=== PATIENT | male | born 1960 | race Caucasian/White ===

== ENCOUNTER 2019-04-13 14:39 | Observation (INO) | payer OTHER, SELFPAY ==
[2019-04-13] MEDS ORDERED: FENTANYL CITR 100 MCG/2 ML ONE (15:05)
[2019-04-13] MEDS ORDERED: ONDANSETRON 4 MG/2 ML VIAL ONE (15:05)
[2019-04-13 15:07] LABS: Basophils % 0.8 % (0-1.3); Hematocrit 42.6 % (39.6-49.0); Lymphocytes % 17.2 % (15.3-44.8); MPV 7.2 fL (7.6-11.3); Protime INR 0.96
[2019-04-13] MEDS ORDERED: ASPIRIN 81 MG CHEWABLE TABLET ONE (15:12)
[2019-04-13 15:28] LABS: ALT/SGPT 50 U/L (12-78); AST/SGOT 36 U/L (15-37); Albumin 3.8 g/dL (3.4-5.0); Alkaline Phosphatase 80 U/L (45-117); BUN Blood Urea Nitrogen 9 mg/dL (7-18); Bicarbonate 25 mmol/L (21-32); Bilirubin Direct 0.1 mg/dL (0-0.2); Bilirubin Total 0.4 mg/dL (0.2-1.0); Glucose Level 112 mg/dL (74-106); Magnesium 2.3 mg/dL (1.8-2.4); NT PRO-BNP 13 pg/mL (<125); Potassium 3.9 mmol/L (3.5-5.1); Protein, Total 7.2 g/dL (6.4-8.2); Sodium Level 139 mmol/L (136-145); Troponin (Emerg Dept Use Only) < 0.02 ng/mL (0.0-0.045)
--- NOTE | 2019-04-13 16:44 | ER ---
[facility] Name: Krystian Ramos Age: 58 yrs Sex: Male : 1960 Arrival Date: 04/13/2019 Time: 14:40 Bed 20 Private MD: Diagnosis: Chest pain, unspecified Presentation: 04/13 14:45 Presenting complaint: Patient states: left sided chest pain, SOB that started about an sv hour ago while ambulating in the mall shopping, CP got a little better after sitting down. c/o nausea. Transition of care: patient was not received from another setting of care. Onset of symptoms was April 13, 2019. Risk Assessment: Do you want to hurt yourself or someone else? Patient reports no desire to harm self or others. Care prior to arrival: None. 14:45 Method Of Arrival: Wheelchair sv 14:45 Acuity: DE 2 sv 15:09 Initial Sepsis Screen: Does the patient meet any 2 criteria? No. Patient's initial jl7 sepsis screen is negative. Does the patient have a suspected source of infection? No. Patient's initial sepsis screen is negative. Triage Assessment: 14:45 General: Appears in no apparent distress. uncomfortable, well groomed, well developed, sv Behavior is calm, cooperative, appropriate for age. Pain: Complains of pain in anterior aspect of left upper chest and left breast Pain currently is 5 out of 10 on a pain scale. Pain began 1 hour ago. Is continuous. Neuro: Level of Consciousness is awake, alert, obeys commands, Oriented to person, place, time, situation, Moves all extremities. Full function. Respiratory: Reports shortness of breath at rest on exertion Respiratory effort is even, unlabored, Respiratory pattern is symmetrical, tachypnea. Historical: - Allergies: 14:48 No Known Allergies; sv - Home Meds: 14:48 lisinopril 10 mg Oral tab [Active]; testosterone IM [Active]; sv - PMHx: 14:48 CVA; Hypertension; Brain aneurysm; sv - PSHx: 14:48 None; sv - Immunization history:: Adult Immunizations unknown. - Social history:: Smoking status: Patient/guardian denies using tobacco. - Ebola Screening: : No symptoms or risks identified at this time. Screenin:52 Abuse screen: Denies threats or abuse. Denies injuries from another. Nutritional ss screening: No deficits noted. Tuberculosis screening: Never had TB. Fall Risk None identified. Assessment: 15:00 General: Appears in no apparent distress. uncomfortable, Behavior is cooperative, jl7 appropriate for age, anxious. Pain: Complains of pain in mid-sternal area Pain radiates to anterior aspect of left upper chest Pain currently is 5 out of 10 on a pain scale. at worst was 10 out of 10 on a pain scale. Quality of pain is described as squeezing, Pain began 30 min ago. Neuro: Level of Consciousness is awake, alert, obeys commands, Oriented to person, place, time, situation. Cardiovascular: Reports chest pain, lightheadedness, nausea, shortness of breath, Heart tones S1 S2 present Patient's skin is warm and dry. Rhythm is regular. Respiratory: Airway is patent Respiratory effort is even, unlabored, Respiratory pattern is regular, symmetrical, Breath sounds are clear bilaterally. GI: Abdomen is round non-distended, Reports nausea, Patient currently denies diarrhea, vomiting. : No signs and/or symptoms were reported regarding the genitourinary system. EENT: No signs and/or symptoms were reported regarding the EENT system. Derm: Skin is pink, warm \T\ dry. 15:54 Reassessment: Patient appears in no apparent distress at this time. Patient and/or jl7 family updated on plan of care and expected duration. Pain level reassessed. Patient is alert, oriented x 3, equal unlabored respirations, skin warm/dry/pink. Pt reports pain rated 4/10 at this time. 17:00 Reassessment: Pt laying in bed with eyes closed, respirations even and unlabored, no jl7 signs of distress noted at this time. 18:00 Reassessment: Patient appears in no apparent distress at this time. No changes from jl7 previously documented assessment. Patient and/or family updated on plan of care and expected duration. Pain level reassessed. Patient is alert, oriented x 3, equal unlabored respirations, skin warm/dry/pink. 19:05 General: Appears in no apparent distress. uncomfortable, Behavior is calm, cooperative, rr5 appropriate for age, complaints of chest pain please see [facility] for the prn medication signed.. Pain: Complains of pain in chest Pain does not radiate. Pain currently is 6 out of 10 on a pain scale. Quality of pain is described as aching, Pain began gradually. Neuro: Level of Consciousness is awake, alert, obeys commands, Oriented to person, place, time, situation, Appropriate for age. Cardiovascular: Reports chest pain, Capillary refill < 3 seconds Patient's skin is warm and dry. Respiratory: Airway is patent Respiratory effort is even, unlabored, Respiratory pattern is regular, symmetrical. 19:05 GI: Abdomen is round non-distended. : No signs and/or symptoms were reported rr5 regarding the genitourinary system. EENT: No signs and/or symptoms were reported regarding the EENT system. Derm: Skin is intact, Skin is pink, warm \T\ dry. 20:15 Reassessment: Patient appears in no apparent distress at this time. Patient is alert, rr5 oriented x 3, equal unlabored respirations, skin warm/dry/pink. Patient states feeling better. Patient states symptoms have improved. Pain: Pain currently is 3 out of 10 on a pain scale. 20:30 Reassessment: snacks given with good appetite. rr5 21:06 Reassessment: Patient appears in no apparent distress at this time. Patient and/or rr5 family updated on plan of care and expected duration. Pain level reassessed. Patient is alert, oriented x 3, equal unlabored respirations, skin warm/dry/pink. updated for the admission as ER hold. patient agreed for the plan of care. 04/14 07:24 Reassessment: Report called to Consuelo REID. rr5 Vital Signs: 04/13 14:48 BP 157 / 97; Pulse 102; Resp 22; Pulse Ox 96% ; Weight 111.13 kg; Height 5 ft. 10 in. sv (177.80 cm); Pain 5/10; 15:18 BP 154 / 81; Pulse 96; Resp 21 S; Temp 98.9(O); Pulse Ox 97% on 2 lpm NC; jl7 15:53 BP 142 / 80; Pulse 97; Resp 16 S; Pulse Ox 100% on 2 lpm NC; Pain 4/10; jl7 17:30 BP 139 / 81; Pulse 87; Resp 16; Pulse Ox 100% on 2 lpm NC; jl7 19:05 BP 157 / 99; Pulse 85; Resp 16; Pulse Ox 96% ; jl7 19:10 BP 143 / 85; Pulse 80; Resp 17; Temp 98.7; Pulse Ox 99% on R/A; Pain 6/10; rr5 20:15 BP 151 / 90; Pulse 86; Resp 19; Pulse Ox 99% ; Pain 3/10; rr5 21:05 BP 155 / 92; Pulse 89; Resp 17; Pulse Ox 99% ; rr5 14:48 Body Mass Index 35.15 (111.13 kg, 177.80 cm) sv ED Course: 14:40 Patient arrived in ED. mr 14:45 Tima Chirinos, RN is Primary Nurse. jl7 14:46 Triage completed. sv 14:48 Arm band placed on. sv 14:52 Patient has correct armband on for positive identification. Bed in low position. Call ss light in reach. compliance monitor on. Pulse ox on. NIBP on. 14:52 Inserted saline lock: 20 gauge in right antecubital area, using aseptic technique. ss Blood collected. Patient maintains SpO2 saturation greater than 95% on room air. 14:59 [facility] Sandoval [facility]-C [facility]. snw 14:59 Cyril Byrne MD is Attending Physician. snw 15:01 EKG done, by infectious waste technician. reviewed by Cyril Byrne MD. sm3 15:23 XRAY Chest (1 view) In Process Unspecified. EDMS 16:42 Rio Stock MD is Hospitalizing Provider. snw 23:00 No provider procedures requiring assistance completed. Patient admitted, IV remains in rr5 place. intact, No redness/swelling at site. Administered Medications: 15:13 Drug: Zofran 4 mg Route: IVP; Site: left antecubital; jl7 15:52 Follow up: Response: No adverse reaction jl7 15:15 Drug: fentaNYL (PF) 25 mcg Route: IVP; Site: left antecubital; jl7 15:45 Follow up: Response: No adverse reaction; Pain is decreased jl7 15:16 Drug: Aspirin Chewable Tablet 324 mg Route: PO; jl7 15:52 Follow up: Response: No adverse reaction jl7 15:19 Not Given (Duplicate Order): Aspirin Chewable Tablet 324 mg PO once; 81 mg tablets x 4 jl7 Outcome: 16:43 Decision to Hospitalize by Provider. snw 23:00 Admitted to ER Hold. Please see [employer] for further documentation. rr5 23:00 Condition: stable 23:00 Instructed on the need for admit. rr5 04/14 07:45 Patient left the ED. Signatures: Dispatcher [employer] EDGeri Vasquez, RN RN Jessy Sandoval, SEAT JOINER CHAINSTITCH-C SEAT JOINER CHAINSTITCH-Csnw FreyMaria Del Rosario mr Angelica Kearns RN RN Erin Castrejon RN RN Tima Chirinos RN RN jl7 Alyssa Hendricks [facility] Chris Kebede RN RN rr5
--- NOTE | 2019-04-13 16:44 | EDPHYS ---
Physician Documentation [facility] Name: Krystian Ramos Age: 58 yrs Sex: Male : 1960 Arrival Date: 04/13/2019 Time: 14:40 Bed 20 Private MD: ED Physician Cyril Byrne HPI: 04/13 15:13 This 58 yrs old Male presents to ER via Wheelchair with complaints of Chest snw Pain, Shortness Of Breath. 15:13 The patient or guardian reports chest pain that is located primarily in the anterior snw chest wall, left. Onset: suddenly, and became persistent. The pain does not radiate. Associated signs and symptoms: Pertinent positives: diaphoresis, lightheadedness, nausea, shortness of breath. The chest pain is described as a pressure. Duration: The patient or guardian reports a single episode, that is still ongoing, but improving. Modifying factors: The symptoms are alleviated by nothing. the symptoms are aggravated by breathing. Severity of pain: At its worst the pain was severe in the emergency department the pain has improved. The patient has not experienced similar symptoms in the past, but family has similar symptoms, father, brother. The patient has not recently seen a physician, the patient's primary care provider is Dr. Iliana Valdez, [facility]. Historical: - Allergies: 14:48 No Known Allergies; sv - Home Meds: 14:48 lisinopril 10 mg Oral tab [Active]; testosterone IM [Active]; sv - PMHx: 14:48 CVA; Hypertension; Brain aneurysm; sv - PSHx: 14:48 None; sv - Immunization history:: Adult Immunizations unknown. - Social history:: Smoking status: Patient/guardian denies using tobacco. - Ebola Screening: : No symptoms or risks identified at this time. ROS: 15:29 Constitutional: Negative for fever, chills, and weight loss, Eyes: Negative for injury, snw pain, redness, and discharge, ENT: Negative for injury, pain, and discharge, Neck: Negative for injury, pain, and swelling. 15:29 Back: Negative for injury and pain, : Negative for injury, bleeding, discharge, and swelling, MS/Extremity: Negative for injury and deformity, Skin: Negative for injury, rash, and discoloration, Neuro: Negative for headache, weakness, numbness, tingling, and seizure. 15:29 Psych: Negative for depression, anxiety, suicide ideation, homicidal ideation, and hallucinations. 15:29 Cardiovascular: Positive for chest pain. 15:29 Respiratory: Positive for shortness of breath, at rest. 15:29 Abdomen/GI: Positive for nausea. 15:29 Neuro: Positive for dizziness. Exam: 15:29 Constitutional: This is a well developed, well nourished patient who is awake, alert, snw and in no acute distress. Head/Face: Normocephalic, atraumatic. Eyes: Pupils equal round and reactive to light, extra-ocular motions intact. Lids and lashes normal. Conjunctiva and sclera are non-icteric and not injected. Cornea within normal limits. Periorbital areas with no swelling, redness, or edema. ENT: Nares patent. No nasal discharge, no septal abnormalities noted. Tympanic membranes are normal and external auditory canals are clear. Oropharynx with no redness, swelling, or masses, exudates, or evidence of obstruction, uvula midline. Mucous membranes moist. Neck: Trachea midline, no thyromegaly or masses palpated, and no cervical lymphadenopathy. Supple, full range of motion without nuchal rigidity, or vertebral point tenderness. No Meningismus. Chest/axilla: Normal chest wall appearance and motion. Nontender with no deformity. No lesions are appreciated. Cardiovascular: Tachycardic rate and rhythm with a normal S1 and S2. No gallops, murmurs, or rubs. Normal PMI, no JVD. No pulse deficits. Respiratory: Lungs have equal breath sounds bilaterally, clear to auscultation and percussion. No rales, rhonchi or wheezes noted. No increased work of breathing, no retractions or nasal flaring. Abdomen/GI: Soft, non-tender, with normal bowel sounds. No distension or tympany. No guarding or rebound. No evidence of tenderness throughout. Back: No spinal tenderness. No costovertebral tenderness. Full range of motion. Skin: Warm, dry with normal turgor. Normal color with no rashes, no lesions, and no evidence of cellulitis. MS/ Extremity: Pulses equal, no cyanosis. Neurovascular intact. Full, normal range of motion. Neuro: Awake and alert, GCS 15, oriented to person, place, time, and situation. Cranial nerves II-XII grossly intact. Motor strength 5/5 in all extremities. Sensory grossly intact. Cerebellar exam normal. Normal gait. Psych: Awake, alert, with orientation to person, place and time. Behavior, mood, and affect are within normal limits. Vital Signs: 14:48 BP 157 / 97; Pulse 102; Resp 22; Pulse Ox 96% ; Weight 111.13 kg; Height 5 ft. 10 in. sv (177.80 cm); Pain 5/10; 15:18 BP 154 / 81; Pulse 96; Resp 21 S; Temp 98.9(O); Pulse Ox 97% on 2 lpm NC; jl7 15:53 BP 142 / 80; Pulse 97; Resp 16 S; Pulse Ox 100% on 2 lpm NC; Pain 4/10; jl7 17:30 BP 139 / 81; Pulse 87; Resp 16; Pulse Ox 100% on 2 lpm NC; jl7 19:05 BP 157 / 99; Pulse 85; Resp 16; Pulse Ox 96% ; jl7 19:10 BP 143 / 85; Pulse 80; Resp 17; Temp 98.7; Pulse Ox 99% on R/A; Pain 6/10; rr5 20:15 BP 151 / 90; Pulse 86; Resp 19; Pulse Ox 99% ; Pain 3/10; rr5 21:05 BP 155 / 92; Pulse 89; Resp 17; Pulse Ox 99% ; rr5 14:48 Body Mass Index 35.15 (111.13 kg, 177.80 cm) sv MDM: 14:59 Patient medically screened. snw 15:50 The patient was given aspirin in the Emergency Department. Data reviewed: vital signs, snw nurses notes, lab test result(s), EKG, radiologic studies. Counseling: I had a detailed discussion with the patient and/or guardian regarding: the historical points, exam findings, and any diagnostic results supporting the discharge/admit diagnosis, the presence of at least one elevated blood pressure reading (>120/80) during this emergency department visit, lab results, radiology results, the need for further work-up and treatment in the hospital. Physician consultation: Rio Stock MD was called at 15:50, was contacted at 15:50, regarding admission, to the telemetry unit. 16:45 DORIS Risk Score: 1 - Three or more CAD risk factors, 1- Known CAD, 1 - Recent [<24hrs] snw Severe Angina, TOTAL SCORE = 3. 04/13 14:48 Order name: Basic Metabolic Panel; Complete Time: 15:35 sv 04/13 14:48 Order name: CBC with Diff; Complete Time: 15:13 sv 04/13 14:48 Order name: LFT's; Complete Time: 15:35 sv 04/13 14:48 Order name: Magnesium; Complete Time: 15:35 sv 04/13 14:48 Order name: NT PRO-BNP; Complete Time: 15:35 sv 04/13 14:48 Order name: PT-INR; Complete Time: 15:13 sv 04/13 14:48 Order name: Troponin (emerg Dept Use Only); Complete Time: 15:35 sv 04/13 17:02 Order name: D-Dimer; Complete Time: 17:04 EDMS 04/14 00:17 Order name: Troponin I; Complete Time: 00:18 EDMS 04/14 05:20 Order name: CBC with Automated Diff EDMS 04/14 05:34 Order name: Troponin I EDMS 04/14 06:09 Order name: Basic Metabolic Panel EDMS 04/14 06:09 Order name: Lipid Profile EDMS 04/14 06:39 Order name: LDL, Direct EDMS 04/13 14:48 Order name: XRAY Chest (1 view) sv 04/13 14:48 Order name: EKG; Complete Time: 14:49 sv 04/13 14:48 Order name: Cardiac monitoring; Complete Time: 14:53 sv 04/13 14:48 Order name: EKG - Nurse/Tech; Complete Time: 14:48 sv 04/13 14:48 Order name: IV Saline Lock; Complete Time: 14:53 sv 04/13 14:48 Order name: Labs collected and sent; Complete Time: 14:53 sv 04/13 14:48 Order name: O2 Per Protocol; Complete Time: 14:48 sv 04/13 14:48 Order name: O2 Sat Monitoring; Complete Time: 14:48 sv 04/13 17:03 Order name: CT Chest For PE Angio ss Administered Medications: 15:13 Drug: Zofran 4 mg Route: IVP; Site: left antecubital; jl7 15:52 Follow up: Response: No adverse reaction jl7 15:15 Drug: fentaNYL (PF) 25 mcg Route: IVP; Site: left antecubital; jl7 15:45 Follow up: Response: No adverse reaction; Pain is decreased jl7 15:16 Drug: Aspirin Chewable Tablet 324 mg Route: PO; jl7 15:52 Follow up: Response: No adverse reaction jl7 15:19 Not Given (Duplicate Order): Aspirin Chewable Tablet 324 mg PO once; 81 mg tablets x 4 jl7 Disposition: 04/14 10:48 Co-signature as Attending Physician, Cyril Byrne MD I agree with the assessment and lucy plan of care. Disposition: 04/13/19 16:43 Hospitalization ordered by Rio Stock for Observation. Preliminary diagnosis is Chest pain, unspecified. - Bed requested for Telemetry/MedSurg (observation). - Status is Observation. hb - Condition is Stable. - Problem is new. - Symptoms have improved. UTI on Admission? No Signatures: Dispatcher [employer] Geri Stauffer, RN Cyril Long MD MD cha Therrien, Shelly, PRODUCTION SUPERINTENDENT-C PRODUCTION SUPERINTENDENT-Csnw Ofelia Ramey, RN RN Erin Castrejon, RN FRANKLIN Tima Chirinos, RN RN jl7 Corrections: (The following items were deleted from the chart) 04/13 22:38 16:43 Hospitalization Ordered by Rio Stock MD for Observation. Preliminary diagnosis cg is Chest pain, unspecified. Bed requested for Telemetry/MedSurg (observation). Status is Observation. Condition is Stable. Problem is new. Symptoms have improved. UTI on Admission? No. snw 04/14 04:34 04/13 22:38 04/13/2019 16:43 Hospitalization Ordered by Rio Stock MD for cg Observation. Preliminary diagnosis is Chest pain, unspecified. Bed requested for [facility] ER HOLD. Status is Observation. Condition is Stable. Problem is new. Symptoms have improved. UTI on Admission? No. cg 04/14 07:45 04:34 04/13/2019 16:43 Hospitalization Ordered by Rio Stock MD for Observation. hb Preliminary diagnosis is Chest pain, unspecified. Bed requested for Telemetry/MedSurg (observation). Status is Observation. Condition is Stable. Problem is new. Symptoms have improved. UTI on Admission? No. cg
--- NOTE | 2019-04-13 17:12 | P.HP ---
Certification for Inpatient Patient admitted to: Observation With expected LOS: <2 Midnights Practitioner: I am a practitioner with admitting privileges, knowledge of patient current condition, hospital course, and medical plan of care. Services: Services provided to patient in accordance with Admission requirements found in Title 42 Section 412.3 of the Code of Federal Regulations Patient History Date of Service: 04/13/19 Primary Care Provider: Iliana Valdez N.P. Reason for admission: Chest pain History of Present Illness: Patient is a 58-year-old male with past medical history of CVA secondary to brain aneurysm status post coiling history of esophageal ulcers hypertension who was in his usual state of health until the day of admission when the patient had sudden onset of dizziness nausea and chest pain. Patient's symptoms are constant moderate progressively worsening. Reports difficulty taking a deep breath. No alleviating factors. Patient came into the ER for further evaluation . Initial workup including troponin level and EKG did not show any acute changes. Patient was given fentanyl and then referred for admission. Home medications list reviewed: Yes - Past Medical/Surgical History Diabetic: No -: Hypertension -: History of CVA -: Brain aneurysm -: Esophageal ulcer -: Esophageal stricture -: On testosterone shots -: Brain aneurysm coiling -: Torn biceps tendon repair -: Bilateral knee replacement -: EGD -: Esophageal dilatation -: Colonoscopy which was normal - Family History Father -: Heart disease (Heart attack at age 43 with quadruple bypass), Cancer Brother -: Heart disease (Coronary artery disease at age 51) - Social History Smoking Status: Never smoker Alcohol use: No Place of Residence: Home Review of Systems 10-point ROS is otherwise unremarkable Cardiovascular: As per HPI Physical Examination - Vital Signs Blood Pressure: 157/97 Pulse: 102 Respirations: 22 Pulse Ox (%): 96 - Physical Exam General: Alert, Oriented x3, Mild distress, Obese HEENT: Atraumatic, PERRLA, Mucous membr. moist/pink, EOMI, Sclerae nonicteric Neck: Supple, 2+ carotid pulse no bruit, No LAD, Without JVD or thyroid abnormality Respiratory: Clear to auscultation bilaterally, Normal air movement Cardiovascular: No edema, Regular rate/rhythm, Normal S1 S2 Gastrointestinal: Normal bowel sounds, Soft and benign, Non-distended, No tenderness Musculoskeletal: No tenderness Integumentary: No rashes Neurological: Normal gait, Normal speech, Normal strength at 5/5 x4 extr, Normal tone, Normal affect - Studies Laboratory Data (last 24 hrs) 04/13/19 14:46: PT 11.3, INR 0.96 04/13/19 14:46: WBC 5.6, Hgb 14.9, Hct 42.6, Plt Count 224 04/13/19 14:46: Sodium 139, Potassium 3.9, BUN 9, Creatinine 1.17, Glucose 112 H , Magnesium 2.3, Total Bilirubin 0.4, AST 36, ALT 50, Alkaline Phosphatase 80 Imagings Data: Chest x-ray no official report however no acute infiltrates seen Assessment and Plan - Plan Chest pain: Will admit for further evaluation. Start on chest pain guidelines. Patient has multiple risk factors including hypertension history of stroke premature coronary artery disease in first-degree male relative. Will obtain serial cardiac enzymes and EKG. Obtain echocardiogram and cardiology consultation. Essential hypertension: Resume home medications as appropriate History of CVA : Stable resume home medications Elevated D-dimer will obtain CT angio chest to rule out PE patient does report difficulty taking in deep breaths. Patient is on testosterone shots which is a risk factor History of esophageal ulcers on Prevacid Osteoarthritis Obesity BMI 35 History of brain aneurysm status post coiling Discharge Plan: Home Plan to discharge in: 24 Hours - Advance Directives Does patient have a Living Will: No Does patient have a Durable POA for Healthcare: No - Code Status/Comfort Care Code Status Assessed: Yes
[2019-04-13] MEDS ORDERED: MORPHINE 2 MG/ML SYR ONE (19:20)
[2019-04-13] MEDS ORDERED: MORPHINE 4 MG/ML SYR IV PRN (19:35)
[2019-04-13] MEDS ORDERED: NITROGLYCERIN 0.4 MG/TAB SL PRN (22:38)
[2019-04-13] MEDS ORDERED: ATORVASTATIN 40 MG TAB PO SCH (22:38)
[2019-04-13] MEDS ORDERED: ACETAMINOPHEN 500 MG TAB PO PRN (22:38)
[2019-04-13] MEDS: METOPROLOL TAR 50 MG TAB PO SCH (22:38)
[2019-04-13] MEDS ORDERED: METOPROLOL TAR 25 MG TAB ONE (23:20)
[2019-04-14] MEDS ORDERED: ATORVASTATIN 80 MG TAB ONE (01:28)
[2019-04-14 05:16] LABS: Absolute Lymphocytes (CBC) 0.9 K/uL (0.7-4.9); Basophils % 0.7 % (0-1.3); Hematocrit 39.8 % (39.6-49.0); Lymphocytes % 15.7 % (15.3-44.8); MPV 7.1 fL (7.6-11.3); RBC Red Blood Cell Count 4.45 M/uL (4.33-5.43)
[2019-04-14 05:50] VITALS: BMI 35.1
[2019-04-14 05:52] LABS: BUN Blood Urea Nitrogen 14 mg/dL (7-18); Bicarbonate 26 mmol/L (21-32); Glucose Level 106 mg/dL (74-106); HDL Cholesterol 24 mg/dL (40-60); LDL Cholesterol, Calculated ND (<130); Potassium 4.1 mmol/L (3.5-5.1); Sodium Level 138 mmol/L (136-145)
[2019-04-14 06:28] LABS: LDL, Direct 107 mg/dL (100-129)
[2019-04-14] MEDS ORDERED: MORPHINE 2 MG/ML SYR IV PRN (08:00)
[2019-04-14] MEDS ORDERED: ENOXAPARIN 40 MG/0.4 ML SQ SCH (09:00)
[2019-04-14] MEDS ORDERED: ASPIRIN EC 81 MG TAB PO SCH (09:00)
[2019-04-14] MEDS ORDERED: LISINOPRIL 10 MG TAB PO SCH (09:00)
[2019-04-14] MEDS ORDERED: INFLUENZA VACCINE (for 3y+) 0.5 ML DOSE IMVAC ONE (11:00)
[2019-04-14 11:44] VITALS: O2SAT 96
[2019-04-14] MEDS: METOPROLOL TAR 50 MG TAB PO SCH (11:50)
--- NOTE | 2019-04-14 13:28 | ECHO ---
HEIGHT: 5 ft 10 in WEIGHT: 244 lb 11.41 oz DATE OF STUDY: 04/14/[address]: Rio Stock MD 2-DIMENSIONAL: YES M.MODE: YES DOPPLER: YES COLOR FLOW: YES TDS: NO PORTABLE: NO DEFINITY: NO BUBBLE STUDY: NO DIAGNOSIS: CHEST PAIN CARDIAC HISTORY: CATHERIZATION: NO SURGERY: NO PROSTHETIC VALVE: NO PACEMAKER: NO MEASUREMENTS (cm) DIASTOLIC (NORMALS) SYSTOLIC (NORMALS) IVSd 1.1 (0.6-1.2) LA Diam 3.9 (1.9-4.0) LVEF 67% LVIDd 4.6 (3.5-5.7) LVIDs 2.9 (2.0-3.5) %FS 37% LVPWd 1.2 (0.6-1.2) Ao Diam 3.3 (2.0-3.7) 2 DIMENSIONAL ASSESSMENT: RIGHT ATRIUM: NORMAL LEFT ATRIUM: NORMAL RIGHT VENTRICLE: NORMAL LEFT VENTRICLE: NORMAL TRICUSPID VALVE: NORMAL MITRAL VALVE: NORMAL PULMONIC VALVE: NORMAL AORTIC VALVE: MILD SCLEROSIS PERICARDIAL EFFUSION: NONE AORTIC ROOT: NORMAL LEFT VENTRICULAR WALL MOTION: NORMAL DOPPLER/COLOR FLOW: NO AORTIC STENOSIS OR AORTIC REGURGITATION. NORMAL CARDIAC DOPPLER. COMMENTS: NORMAL LEFT VENTRICULAR EJECTION FRACTION. AORTIC SCLEROSIS WITH NO AORTIC STENOSIS OR AORTIC REGURGITATION. TECHNOLOGIST: Anshu COOPER
--- NOTE | 2019-04-14 13:49 | TREADMILL ---
70% H.R.: 115 85% H.R.: 139 90% H.R.: 148 100% H.R.: 164 DX: CHEST PAIN Date of Study: 04/14/19 Ht: 5 10 Wt: 244 lb 11.41 oz Consulting Physician: ANDREI MEDICATIONS: TYLENOL, ASPIRIN, LIPITOR, LOVENOX, PRINIVIL, LOPRESSOR, NITROSTAT, TESTOSTERONE, VALSARTAN. HISTORY: CEREBRAL VASCULAR ACCIDENT, HYPERTENSION, BRAIN ANEURYSM PHYSICIAL EXAMINATION: RESTING B.P.: 164/99 RESTING H.R.: 88 RESTING EKG: NORMAL SINUS RHYTHM PROTOCOL: DAVID CARDIOLITE EXERCISE TIME: 8:21 MAXIMUM HEART RATE: 151 % OF PREDICTED B.P. AT PEAK STRESS: 220/104 H.R. AT 1 MINUTE POST EXERCISE: 130 IMPRESSION: STOPED FOR TARGET HEART RATE, FATIGUE AND SHORTNESS OF BREATH. NO ARRYTHMIAS NOTED. PATIENT DENIED CHEST PAIN, TOLERATED WELL. REPEAT BLOOD PRESSURE 180/104, HEART RATE 93. NO ST DEPRESSION WITH STRESS. SEE NUCLEAR MEDICINE REPORT.
--- NOTE | 2019-04-14 15:50 | P.DS ---
Admission Date: 04/13/19 Discharge Date: 04/14/19 Primary Care Provider: Iliana Valdez N.P. 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 Patient's symptoms are constant moderate progressively worsening. Reports difficulty taking a deep breath. No alleviating factors. Patient came into the ER for further evaluation . Initial workup including troponin level and EKG did not show any acute changes. Patient was given fentanyl and then referred for admission. Hospital Course: Patient is a 58-year-old male with past medical history of hypertension comes in with chest pain. Patient was admitted for further evaluation. ACS was ruled out. Cardiac enzymes were negative. Cardiology was consulted. Patient did have elevated D-dimer. CT angio chest was negative for PE. Doppler sonogram for DVT was also negative. Cardiology recommended cardiac stress test which was negative. Echocardiogram showed EF of 67% with mild aortic sclerosis. Patient's symptoms improved the patient was cleared for discharge he was counseled to stop taking STELLA-inhibitor and ARB together Vital Signs/Physical Exam: Temp Pulse Resp BP Pulse Ox 97.4 F 72 16 149/83 H 97 04/14/19 08:00 04/14/19 11:50 04/14/19 08:00 04/14/19 11:50 04/14/19 08:00 General: Alert, In no apparent distress, Oriented x3 HEENT: Atraumatic, PERRLA, EOMI Neck: Supple, JVD not distended Respiratory: Clear to auscultation bilaterally, Normal air movement Cardiovascular: Regular rate/rhythm, Normal S1 S2 Gastrointestinal: Normal bowel sounds, No tenderness Musculoskeletal: No tenderness Integumentary: No rashes Neurological: Normal speech, Normal tone, Normal affect Lymphatics: No axilla or inguinal lymphadenopathy Laboratory Data at Discharge: WBC 5.6 K/uL (4.3-10.9) 04/14/19 04:55 Hgb 13.8 g/dL (13.6-17.9) 04/14/19 04:55 Hct 39.8 % (39.6-49.0) 04/14/19 04:55 Plt Count 195 K/uL (152-406) 04/14/19 04:55 PT 11.3 SECONDS (9.5-12.5) 04/13/19 14:46 INR 0.96 04/13/19 14:46 Sodium 138 mmol/L (136-145) 04/14/19 04:55 Potassium 4.1 mmol/L (3.5-5.1) 04/14/19 04:55 BUN 14 mg/dL (7-18) 04/14/19 04:55 Creatinine 1.06 mg/dL (0.55-1.3) 04/14/19 04:55 Glucose 106 mg/dL (74-106) 04/14/19 04:55 Magnesium 2.3 mg/dL (1.8-2.4) 04/13/19 14:46 Total Bilirubin 0.4 mg/dL (0.2-1.0) 04/13/19 14:46 AST 36 U/L (15-37) 04/13/19 14:46 ALT 50 U/L (12-78) 04/13/19 14:46 Alkaline Phosphatase 80 U/L (45-117) 04/13/19 14:46 Troponin I < 0.02 ng/mL (0.0-0.045) 04/14/19 04:55 Triglycerides 776 mg/dL (<150) H 04/14/19 04:55 Cholesterol 216 mg/dL (<200) H 04/14/19 04:55 LDL Cholesterol Direct 107 mg/dL (100-129) 04/14/19 04:55 HDL Cholesterol 24 mg/dL (40-60) L 04/14/19 04:55 Cholesterol/HDL Ratio 9.00 04/14/19 04:55 Imagings Data: Per verbal report from radiologist Dr. Huffman Doppler sonogram negative for DVT Cardiac stress test negative for any stress-induced ischemia Home Medications: Atorvastatin Calcium [Lipitor] 40 mg PO BEDTIME #30 tab 04/14/19 Lisinopril [Prinivil*] 10 mg PO DAILY 04/14/19 Omeprazole [Prilosec] 40 mg PO DAILY 04/14/19 New Medications: Atorvastatin Calcium [Lipitor] 40 mg PO BEDTIME #30 tab Patient Discharge Instructions: f/up w PCP in 2-3 days. f/up w live study manager Dr. Gilbert in 2 weeks. Return to Er for worsening condition Diet: AHA Activity: Ad gabriela
[2019-04-14 17:14] VITALS: BP 115/76; TEMP 97.9
--- NOTE | 2019-04-14 19:05 | CON ---
History Of Present Illness: Mr. Ramos is 58. He came to the hospital because of an episode of weakness, dizziness, followed by chest pain. The chest pain lasted about an hour and since he has be en here, he has had normal cardiac enzymes, normal EKG, resolution of the pain. Mr. Ramos has h ad 2 heart catheterizations in the past. He has stress test yearly. Sees a physician in [place]. A ll the tests have been nuclear stress test. All has been normal. He takes a cholesterol medicine, t akes a blood pressure medicine. Does not have diabetes. He was a tobacco user but he says he quit 2 weeks ago. Regular chewing tobacco or snuff user. Medications: Home medications have been testosterone, valsartan, lisinopril, and omeprazole. Physical Examination: Constitutional: 5 feet 10 inches, 244 pounds. General: Obese, alert, oriented, pleasant, not in distress. Neck: Carotids, no bruit. Lungs: Clear. Cardiac: Normal. Electrocardiogram is not available, is lost in the computer system, so we will repeat the EKG that ca n be uncovered. The patient should have a nuclear stress test and echo. If that is fine, he can be discharged home. DUSTIN Voice ID: [id number] Report ID: [id number]
--- NOTE | 2019-04-14 19:05 | RAD REPORT ---
EXAM DESCRIPTION: RAD - Chest Single View - 04/13/2019 3:29 pm CLINICAL HISTORY: Left-sided chest pain COMPARISON: March 2010 TECHNIQUE: AP portable chest image was obtained 1519 hours . FINDINGS: No focal lung parenchymal process. Interstitial markings are present but not substantially different from comparison. Baseline pattern could mask early interstitial edema or infiltrate. Heart and vasculature are normal. No measurable pleural effusion and no pneumothorax. No acute bony abnorm ality seen. No acute aortic findings suspected. IMPRESSION: No acute cardiopulmonary process. Baseline interstitial pattern could mask early stages of interstitial edema or infiltrate.
--- NOTE | 2019-04-14 19:06 | EKG ---
Test Date: 2019-04-13 Test Time: 14:46:32 Education Specialist: ANDRES MEASUREMENT RESULTS: Intervals: Rate: 100 VA: 140 QRSD: 96 QT: 334 QTc: 430 [place]: P: 65 VA: 140 QRS: 71 T: 47 INTERPRETIVE STATEMENTS: Normal sinus rhythm Normal ECG Compared to ECG 04/07/2010 15:03:47 No significant changes Electronically Signed On 04-13-19 17:49:56 CDT by Baljit Gilbert
--- NOTE | 2019-04-14 19:16 | RAD REPORT ---
EXAM DESCRIPTION: NM RET STRESS CARDIAC IMAGING CLINICAL HISTORY: Chest pain. COMPARISON: None. TECHNIQUE: The patient was administered approximately 10 millicuries Tc 99M Sestamibi prior to resting SPECT imaging of the heart. The patient was then administered approximately 30 millicuries of Tc 99M Sestamibi following exercise or pharmacologic stress. Multiplanar SPECT images were reviewed. FINDINGS: End-diastolic volume was 128 milliliters with a 64 milliliter in systolic volume. Ejection fraction is 50% No stress induced ischemic changes are identifiable. No areas of scarred myocardium is seen. No clear change between rest and stress sequencing. IMPRESSION: No stress ischemia. No suspicious finding is noted. End-diastolic volume was slightly enlarged at 128 milliliters. Ejection fraction normal at 50%
--- NOTE | 2019-04-15 15:57 | RAD REPORT ---
EXAM DESCRIPTION: CT - Chest For Pe Angio - 04/14/2019 7:02 pm CLINICAL HISTORY: elevated DDimer, chest pain COMPARISON: Chest Single View dated 04/13/2019 TECHNIQUE: Dynamically enhanced 3 mm thick images of the chest were obtained during administration o f approximately 150mL Isovue 370 IV contrast. Coronal and oblique MIP reconstruction images were gene rated and reviewed. Exam utilizes a protocol to evaluate the pulmonary arterial tree. All CT scans are performed using dose optimization technique as appropriate and may include automated exposure control or mA/KV adjustment according to patient size. FINDINGS: No pulmonary emboli are identified. The aorta as imaged shows no acute or suspicious finding. No pericardial thickening or effusion. No focal mass or infiltrate. Motion degradation accentuates the interstitial pattern potentially mask ing early stages of interstitial edema or infiltrate. No pleural effusion or pleural thickening. No mediastinal or hilar suspicious masses. No chest wall masses or abnormal axillary lymphadenopathy. IMPRESSION: No pulmonary emboli identified. No focal mass or infiltrate. Motion degradation accentuates the interstitial pattern potentially mask ing early stages of interstitial edema or infiltrate. Note: Due to prolonged technical difficulties with the PACs - dictation systems, final written report was delayed. Verbal report was provided to the ordering physician at the time of the study.
--- NOTE | 2019-04-15 17:05 | RAD REPORT ---
EXAM DESCRIPTION: US - Extrem Venous W Compress Gee - 04/14/2019 7:08 pm CLINICAL HISTORY: Leg pain and swelling COMPARISON: None. TECHNIQUE: Real-time sonographic evaluation of the bilateral lower extremity common femoral, superfi cial femoral, popliteal and posterior tibial veins was performed. FINDINGS: Normal compressibility, flow augmentation, phasic flow and spontaneous flow are identified in the left and right lower extremity common femoral, superficial femoral, popliteal and posterior t ibial veins. No intraluminal filling defects seen. IMPRESSION: No DVT in either lower extremity. Due to prolonged technical difficulties with the PACs sheet rock layer systems, final written report was delayed.
== END 2019-04-14 18:15 | disposition home or self-care (01) ==
LOC: ER 14:39 → ERHOLD 16:06 → 4TH 04-14 07:24
PROVIDERS: ADMIT Family Medicine; ATTEND Family Medicine
DX: R07.9 Chest pain, unspecified (principal); I10 Essential (primary) hypertension; Z86.73 Personal history of transient ischemic attack (TIA), and cerebral infarction without residual deficits; Z96.653 Presence of artificial knee joint, bilateral
CPT/HCPCS: 93017; 93005; 93306; 85025 ×2; 80048 ×2; 36415; 83721; 83735; 85610; 80061; 85379; 80076; 84484 ×3; 83880; 71275; 71045; 90471; 93970; 94760 ×2; 78452; 96375; 96374; 99285; Q9967; Q2035; J3010; J2270 ×2; J2405; A9500; G0378 ×2; J1650